=== PATIENT | female | born 1990 | race Caucasian/White ===

== ENCOUNTER 2020-06-04 12:18 | Emergency (ER) | payer OTHER ==
[~2020-06-04 12:18] MED LIST: CLEOCIN 150MG150 MG PO; COMBIVENT0.074 GM/I INH; FLEXERIL 10 MG10 MG PO; IBUPROFEN800 MG PO; NAPROSYN500 MG PO; NORCO 5-325 TA1 EACH PO; PREDNISONE 50 M50 MG PO; PREDNISONE20 MG PO; Tussinex PO; Voltaren Gel 1 % TOP; ZANTAC150 MG PO; ZOFRAN ODT 4 MG4 MG SL
[2020-06-04] MEDS ORDERED: IBUPROFEN800 MG PO (14:18)
== END 2020-06-04 14:30 | disposition home or self-care (01) ==
LOC: ER1 12:18
DX: S92.902A Unspecified fracture of left foot, initial encounter for closed fracture (principal); F17.200 Nicotine dependence, unspecified, uncomplicated; Z88.0 Allergy status to penicillin; W01.0XXA Fall on same level from slipping, tripping and stumbling without subsequent striking against object, initial encounter; Y92.009 Unspecified place in unspecified non-institutional (private) residence as the place of occurrence of the external cause
CPT/HCPCS: 73590; 73610; 73630; 99283

== ENCOUNTER 2020-07-05 21:44 | Emergency (ER) | payer OTHER | END 2020-07-06 00:20 | disposition left against medical advice (07) | LOC: ER1 21:44 | DX: Z53.21 Procedure and treatment not carried out due to patient leaving prior to being seen by health care provider (principal) ==

== ENCOUNTER 2020-07-15 03:16 | Emergency (ER) | payer OTHER ==
[2020-07-15] MEDS ORDERED: CYCLOBENZAPRINE5 MG PO (05:50)
[2020-07-15] MEDS ORDERED: IBUPROFEN800 MG PO (05:50)
== END 2020-07-15 06:15 | disposition home or self-care (01) ==
LOC: ER1 03:16
DX: S06.0X0A Concussion without loss of consciousness, initial encounter (principal); F17.210 Nicotine dependence, cigarettes, uncomplicated; V86.69XA Passenger of other special all-terrain or other off-road motor vehicle injured in nontraffic accident, initial encounter; Y92.410 Unspecified street and highway as the place of occurrence of the external cause; Z88.0 Allergy status to penicillin
CPT/HCPCS: 70450; 72125; 99284

== ENCOUNTER 2020-11-19 19:34 | Emergency (ER) | payer OTHER ==
[~2020-11-19 19:34] MED LIST changes: +CYCLOBENZAPRINE5 MG PO
[2020-11-19] MEDS ORDERED: HYDROCODON-ACE1 EAC4 PO (21:36)
== END 2020-11-19 22:15 | disposition home or self-care (01) ==
LOC: ER1 19:34
DX: S60.812A Abrasion of left wrist, initial encounter (principal); S60.811A Abrasion of right wrist, initial encounter; S40.212A Abrasion of left shoulder, initial encounter; V49.40XA Driver injured in collision with unspecified motor vehicles in traffic accident, initial encounter; Y92.410 Unspecified street and highway as the place of occurrence of the external cause; F17.200 Nicotine dependence, unspecified, uncomplicated
CPT/HCPCS: 71045; 72125; 73030; 73090; 73130; 99284

== ENCOUNTER 2021-02-01 14:03 | Emergency (ER) | payer OTHER ==
[~2021-02-01 14:03] MED LIST changes: +HYDROCODON-ACE1 EAC4 PO
== END 2021-02-01 15:15 | disposition home or self-care (01) ==
LOC: ER1 14:03
DX: S06.0X0A Concussion without loss of consciousness, initial encounter (principal); Z88.0 Allergy status to penicillin; F17.210 Nicotine dependence, cigarettes, uncomplicated; W22.8XXA Striking against or struck by other objects, initial encounter
CPT/HCPCS: 73630; 99284

== ENCOUNTER → 2021-10-23 | Outpatient (CLI) | payer BC, OTHER | LOC: KOH-I 10-21 13:30 | DX: R10.32 Left lower quadrant pain (principal); N83.202 Unspecified ovarian cyst, left side | CPT/HCPCS: 76856 ==